=== PATIENT | female | born 1965 | race African-American/Black ===

== ENCOUNTER 2019-04-26 08:00 | Emergency (ER) | payer MEDICAID ==
[~2019-04-26] VITALS: Ht 160 cm; Wt 45.0 kg
[2019-04-26] MEDS ORDERED: HYDROCODONE/ACETAMINOPHEN 5/325MG TABLET PO ONE ×2 (10:00→11:30)
[2019-04-26 11:32] VITALS: BP 119/81
== END 2019-04-26 11:38 | disposition home or self-care (01) ==
LOC: ER 08:00
DX: C18.9 Malignant neoplasm of colon, unspecified (principal); G89.29 Other chronic pain; Z76.0 Encounter for issue of repeat prescription; J44.9 Chronic obstructive pulmonary disease, unspecified; Z92.21 Personal history of antineoplastic chemotherapy; Z88.0 Allergy status to penicillin
CPT/HCPCS: 99283